=== PATIENT | male | born 1950 | race Caucasian/White ===

== ENCOUNTER 2018-06-23 06:17 | Day surgery (SDC) | payer OTHER ==
[~2018-06-23] VITALS: Ht 175.3 cm; Wt 86.2 kg
[~2018-06-23 06:17] MED LIST: COLACE100 MG PO; EFFEXOR XR150 MG PO; ELIQUIS5 MG PO; HYDROCHLOROTHIA25 MG PO; KLONOPIN0.5 M1 PO; LAMICTAL100 MG PO; LAMICTAL200 MG PO; LEVOTHYROXINE50 MCG PO; NORVASC10 MG PO; PRAVACHOL40 MG PO; PRILOSEC20 MG PO; TRAZODONE HCL50 MG PO
[2018-06-23 06:52] VITALS: BP 161/79
[2018-06-23 14:22] VITALS: BP 129/60
[2018-06-23 19:59] VITALS: BP 117/69
[2018-06-23 23:55] VITALS: BP 151/86
[2018-06-24 03:54] VITALS: BP 116/70
[2018-06-24 08:05] VITALS: BP 136/65
[2018-06-24] MEDS ORDERED: HYDROCODON-ACE1 EAC7 PO (08:38)
[2018-06-24] MEDS ORDERED: CYCLOBENZAPRINE10 MG PO (08:38)
== END 2018-06-24 09:03 | disposition home or self-care (01) ==
LOC: SDC 06:17 → 2SOUTH 12:24 → ENRESERV 12:34 → 2EAST 13:49 → SDC 14:45 → 2EAST 06-24 09:03
DX: M48.062 Spinal stenosis, lumbar region with neurogenic claudication (principal); M54.16 Radiculopathy, lumbar region; I10 Essential (primary) hypertension; G47.33 Obstructive sleep apnea (adult) (pediatric); E03.9 Hypothyroidism, unspecified; K21.9 Gastro-esophageal reflux disease without esophagitis; F17.200 Nicotine dependence, unspecified, uncomplicated; Z86.73 Personal history of transient ischemic attack (TIA), and cerebral infarction without residual deficits; Z79.01 Long term (current) use of anticoagulants
CPT/HCPCS: 72020; 76000; G0378; J0690; J1100; J1170; J2250; J2405; J2710; J3010; J3480; J7643; S0020